=== PATIENT | male | born 1995 | race Caucasian/White ===

== ENCOUNTER 2019-10-20 19:40 | Emergency (ER) | payer BC, OTHER ==
[2019-10-20 20:11] VITALS: BP 117/65
[2019-10-20] MEDS ORDERED: HYDROCODONE/ACETAMINOPHEN 5-325 MG TABLET PO ONE (21:00)
--- NOTE | 2019-10-20 21:30 | RADIOLOGY REPORT (SQ) ---
CLINICAL INDICATION: pain/injury. . TECHNIQUE: 3 view(s) were obtained of the left foot. COMPARISON: None. FINDINGS: No acute displaced fracture is identified of the foot. Alignment appears anatomic. Joint spaces are within normal limits for age. Surrounding soft tissues are unremarkable. IMPRESSION: No evidence of acute displaced fracture of the foot.
--- NOTE | 2019-10-20 21:45 | ER Document Report ---
HPI - HPI Patient complains to provider of: Left foot pain Time Seen by Provider: 10/20/19 20:57 Pain Level: 3 Context: 24-year-old male no previous medical problems presents to the emergency room complaining of pain and swelling to his left foot. Patient states he was walking in the yard and did not know there was a pull still stuck in the ground he ran into it with his left foot while wearing sneakers. States when he took off his sneaker he noticed swelling and erythema to the distal aspect of his left foot. No open cuts or wounds. No medications for symptoms. No history of previous trauma or injury to his foot. States is able to walk but is painful. Associated Symptoms: None Exacerbated by: Movement, Walking Relieved by: Denies Similar symptoms previously: No Recently seen / treated by doctor: No - ROS ROS below otherwise negative: Yes - CONSTITUTIONAL Constitutional: DENIES: Fever - NEURO Neurology: DENIES: Weakness - MUSCULOSKELETAL Musculoskeletal: REPORTS: Extremity pain - DERM Skin Color: Erythema Skin Problems: None Past Medical History - General Information source: Patient - Social History Smoking Status: Never Smoker Frequency of alcohol use: None Drug Abuse: None Family History: Reviewed & Not Pertinent Patient has homicidal ideation: No - Immunizations Immunizations up to date: Yes Hx Diphtheria, Pertussis, Tetanus Vaccination: Yes Vertical Provider Document - CONSTITUTIONAL Agree With Documented VS: Yes Exam Limitations: No Limitations General Appearance: Moderate Distress - INFECTION CONTROL TRAVEL OUTSIDE OF THE [place] IN LAST 30 DAYS: No - HEENT HEENT: Atraumatic, Normocephalic - NECK Neck: Normal Inspection, Supple - RESPIRATORY Respiratory: Breath Sounds Normal, No Respiratory Distress, Chest Non-Tender - CARDIOVASCULAR Cardiovascular: Regular Rate, Regular Rhythm, No Murmur - MUSCULOSKELETAL/EXTREMETIES Musculoskeletal/Extremeties: Tender - Dorsal aspect of the mid left foot with erythema, swelling, ecchymosis is noted. It is tender to palpation. There are no open cuts or wounds. There is no obvious deformity noted., Edema - NEURO Level of Consciousness: Awake, Alert, Appropriate Motor/Sensory: No Motor Deficit, No Sensory Deficit - DERM Integumentary: Warm, Dry, No Rash Course - Re-evaluation Re-evalutation: 10/20/19 21:44 Patient is resting comfortably with decreased pain. He is able to ambulate with limping noted to his left foot. X-ray results were reviewed with patient. He was counseled to rest, ice, elevate his foot. Can take Tylenol and/or Motrin as needed for pain. Outpatient follow-up with orthopedics if not improving in 2 to 3 days. On-call physician was provided. My discharge - Vital Signs Vital signs: Temp Pulse Resp BP Pulse Ox 98.8 F 87 16 117/65 96 10/20/19 20:55 10/20/19 20:09 10/20/19 20:09 10/20/19 20:09 10/20/19 20:09 - Diagnostic Test Radiology reviewed: Reports reviewed Discharge - Discharge Clinical Impression: Contusion of left foot Qualifiers: Encounter type: initial encounter Qualified Code(s): S90.32XA - Contusion of left foot, initial encounter Condition: Stable Disposition: HOME, SELF-CARE Instructions: Contusion ([facility]) Additional Instructions: Rest, ice, elevate your left foot. Take Tylenol and or Motrin as needed for pain. Weightbearing as tolerated. Follow-up with orthopedics if not improving in 2 to 3 days. Return for any new or worsening symptoms. Referrals: LOCAL,NO [Primary Care Provider] - Follow up as needed FABIAN CARTER MD [ACTIVE PROVISIONAL STAFF] - Follow up as needed
== END 2019-10-20 22:20 | disposition home or self-care (01) ==
LOC: ER 19:40
DX: S90.32XA Contusion of left foot, initial encounter (principal); W22.09XA Striking against other stationary object, initial encounter; Y93.01 Activity, walking, marching and hiking
CPT/HCPCS: 99283